=== PATIENT | female | born 1980 | race American Indian/Alaskan Native ===

== ENCOUNTER 2021-02-25 08:37 | Inpatient (IN) | payer BC, OTHER ==
[2021-03-03 16:27] VITALS: BP 148/80
== END 2021-03-03 16:00 | disposition home or self-care (01) | DRG 788 ==
LOC: LD 08:37 → OB 03-02 03:18
PROVIDERS: ADMIT Obstetrics & Gynecology; ATTEND Obstetrics & Gynecology
PROC: 10D00Z1 Extraction of Products of Conception, Low, Open Approach (ICD-10-PCS; principal; 2021-03-01)
DX: O14.04 Mild to moderate pre-eclampsia, complicating childbirth (principal); O99.824 Streptococcus B carrier state complicating childbirth; Z3A.37 37 weeks gestation of pregnancy; Z37.0 Single live birth; O24.425 Gestational diabetes mellitus in childbirth, controlled by oral hypoglycemic drugs; O61.9 Failed induction of labor, unspecified; Z88.8 Allergy status to other drugs, medicaments and biological substances; O09.513 Supervision of elderly primigravida, third trimester; Z20.822 Contact with and (suspected) exposure to COVID-19
CPT/HCPCS: 36415; 59200; 76815; 81001; 82565; 82962; 83615; 83735; 84450; 84460; 84550; 85014; 85018; 85027; 86592; 86850; 86900; 86901; 88307; 90471; 90715; G0378; A6250; J0290; J0690; J1200; J1885; J2250; J2405; J2590; J2765; J3010; J3475; J3490; J7120; U0003